=== PATIENT | female | born 1985 | race Caucasian/White ===

== ENCOUNTER 2019-05-13 07:09 | Emergency (ER) | payer BC ==
[~2019-05-13] VITALS: Ht 157.5 cm; Wt 96.8 kg
--- NOTE | 2019-05-13 08:51 | REP ---
Clinical: Trauma . Technique: AP, lateral, bilateral oblique views right and left ankle . Findings: Left ankle: No acute fracture or dislocation. Skeletal structures and joint spaces are intact and normal. Ankle mortise appears stable. No subcutaneous emphysema or radiodense foreign body. Right ankle: Lateral soft tissue swelling. No acute fracture or dislocation. Skeletal structures and joint spaces are intact and normal. Ankle mortise appears stable. No subcutaneous emphysema or radiodense foreign body. Impression: Right ankle with lateral swelling. Electronically Signed by Ang Truong MD 05/13/2019 08:43 A
[2019-05-13 09:34] VITALS: BP 118/82
== END 2019-05-13 09:30 | disposition home or self-care (01) ==
LOC: M ED 07:09
DX: S93.401A Sprain of unspecified ligament of right ankle, initial encounter (principal); S93.402A Sprain of unspecified ligament of left ankle, initial encounter; Y92.098 Other place in other non-institutional residence as the place of occurrence of the external cause; Z88.2 Allergy status to sulfonamides